=== PATIENT | female | born 1975 | race Caucasian/White ===

== ENCOUNTER 2017-08-02 18:56 | Emergency (ER) | payer BC ==
[2017-08-02 19:14] VITALS: BP 164/77; PULSE 84; TEMP 99.3
[2017-08-02 19:20] VITALS: RESP 18
--- NOTE | 2017-08-02 20:04 | XR ---
EXAMINATION: XR chest 2V DATE AND TIME: 08/02/2017 7:37 PM ORDERING PROVIDER: Chanda Kapoor CLINICAL INDICATION: Pain; right anterior rib pain with coughing for a week TECHNIQUE: PA and lateral COMPARISON: 07/03/2015 DESCRIPTION: The lungs are clear. The pleural spaces are negative. The cardiac silhouette is not enlarged. The mediastinal and pleural silhouettes are unremarkable. The skeletal structures are intact without focal findings. The soft tissues are unremarkable. IMPRESSION: NO ACUTE PROCESS.
--- NOTE | 2017-08-02 20:05 | XR ---
PROCEDURE: XR ribs RT, 4 views DATE AND TIME: 08/02/2017 7:37 PM REFERRING PHYSICIAN: Chanda Kapoor CLINICAL INDICATION: PHH, Pain right anterior rib TECHNIQUE: Department protocol. COMPARISON: None FINDINGS: There is no fracture or malalignment. The soft tissues are unremarkable. No incidental find ings. IMPRESSION: NO ACUTE PROCESS.
--- NOTE | 2017-08-02 20:11 | ED ---
General Adult HPI - General Chief complaint: Upper Respiratory Infection Stated complaint: cough Time Seen by Provider: 08/02/17 19:24 Source: patient, RN notes reviewed Mode of arrival: ambulatory Limitations: no limitations - History of Present Illness Initial comments: This is a 42-year-old female presents to the emergency department with chief complaint of cough. Patient states that she has had a nonproductive cough for the past 8 weeks. She states that she was evaluated by a doctor and was given albuterol and Singulair. She states that a couple of days ago she developed a right rib pain that increases with coughing or taking a deep breath. Patient denies any recent hospitalizations or surgeries, travel, estrogen use, history of blood clots. She denies any upper respiratory symptoms including sore throat , sinus congestion, ear pain or runny nose. She denies any fevers or chills. Patient does report a history of asthma. - Related Data Home Medications Medication Instructions Recorded Confirmed Fexofenadine HCl [Sis Allergy] 60 mg PO BID 08/02/17 08/02/17 Montelukast [Singulair] 10 mg PO HS 08/02/17 08/02/17 Allergies Allergy/AdvReac Type Severity Reaction Status Date / Time amoxicillin Allergy Rash/Hives Verified 08/02/17 19:14 sulfamethoxazole Allergy Rash/Hives Verified 08/02/17 19:14 [From Bactrim] trimethoprim [From Bactrim] Allergy Rash/Hives Verified 08/02/17 19:14 Review of Systems ROS Statement: Those systems with pertinent positive or pertinent negative responses have been documented in the HPI. ROS Other: All systems not noted in ROS Statement are negative. Past Medical History Past Medical History: No Reported History Additional Past Medical History / Comment(s): herniated disc C5-6 C6-7, n/t lt arm with pain to back along shoulder blades thru chest and valeri arms,steroid injection June,PM History of Any Multi-Drug Resistant Organisms: None Reported Past Surgical History: Tonsillectomy Additional Past Surgical History / Comment(s): UTERINE ABLATION, RIGHT AND LEFT ELBOW Past Anesthesia/Blood Transfusion Reactions: Motion Sickness Past Psychological History: No Psychological Hx Reported Smoking Status: Never smoker Past Alcohol Use History: None Reported Past Drug Use History: None Reported - Past Family History Father Family Medical History: No Reported History Mother Family Medical History: No Reported History General Exam - General Exam Comments Initial Comments: General: Awake and alert, well-developed; in no apparent distress. HEENT: Head atraumatic, normocephalic. Pupils are equal, round and reactive to light. Extraocular movements intact. Oropharynx moist without erythema or exudate. Neck: Supple. Normal ROM. Cardiovascular: Regular rate and rhythm. No murmurs, rubs or gallops. Chest symmetrical. There is tenderness on palpation of right anterior ribs just below the right breast. Respiratory: Lungs clear to auscultation bilaterally. No wheezes, rales or rhonchi. Normal respiratory effort with no use of accessory muscles. Musculoskeletal: Normal ROM, no tenderness bilateral upper and lower extremities. Ambulating normally. Skin: [place], warm and dry without rashes or lesions. Neurological: Alert and oriented x3. CN II-XII grossly intact. Speech is fluent and answers are appropriate. No focal neuro deficits. Psychiatric: Normal mood and affect. No overt signs of depression or anxiety noted. Limitations: no limitations Course Vital Signs 08/02/17 08/02/17 19:11 19:19 Temperature 99.3 F Pulse Rate 84 Respiratory 20 18 Rate Blood Pressure 164/77 O2 Sat by Pulse 99 Oximetry Medical Decision Making - Medical Decision Making This is a 42-year-old female who presents to the emergency department with chief complaint of cough and right rib pain. Patient states that she has a history of asthma and has had a cough for the past 8 weeks that is nonproductive. She has followed up with her primary care physician who prescribed her albuterol, singular and Advair. Patient is trying to get in to see an allergy and asthma specialist. Patient states that a couple of days ago she developed right rib pain that is worse with coughing and sneezing. PERC score 0. Denies any fevers or chills. On presentation, lungs are clear to auscultation bilaterally and vital signs are stable. Chest and rib x-rays were obtained and revealed no acute abnormalities. Patient is likely suffering from an intercostal muscle strain due to the excessive coughing. Patient states that she has tried multiple [id number] medications for cough suppression. I did recommend taking a teaspoon of honey. Also recommended ibuprofen 600 mg every 6 hours and ice for the muscle strain. Patient is in no acute distress and will be discharged home at this time. She is in agreement with plan and voices understanding. All questions were answered. - Radiology Data Radiology results: report reviewed, image reviewed X-ray right ribs impression: No acute process. Chest x-ray impression: No acute process. Disposition Clinical Impression: Intercostal muscle strain Disposition: HOME SELF-CARE Condition: Good Instructions: Chest Wall Pain (ED) Additional Instructions: Please rest, ice and take ibuprofen 600 mg every 6 hours for the next 2-3 days. Please follow up with primary care provider within 1-2 days. Return to emergency department if symptoms should worsen or any concerns arise. Is patient prescribed a controlled substance at d/c from ED?: No Referrals: Jeannie Billings MD [Primary Care Provider] - 1-2 days Time of Disposition: 20:22
== END 2017-08-02 20:25 | disposition home or self-care (01) ==
LOC: EC 18:56
DX: S29.011A Strain of muscle and tendon of front wall of thorax, initial encounter (principal); R05 Cough; Z88.0 Allergy status to penicillin; Z88.1 Allergy status to other antibiotic agents; Z88.2 Allergy status to sulfonamides; Z79.899 Other long term (current) drug therapy; X58.XXXA Exposure to other specified factors, initial encounter
CPT/HCPCS: 71046; 99283

== ENCOUNTER 2018-03-25 02:24 | Observation (INO) | payer BC ==
[2018-03-25] MEDS ORDERED: SODIUM CHLORIDE 0.9% 500 ML 500 ML IV STA (02:40)
[2018-03-25 02:52] LABS: Basophils # (A) 0.1 k/uL (0-0.2); Basophils % (A) 1 %; Eosinophils # (A) 0.2 k/uL (0-0.7); Eosinophils % (A) 3 %; HCT 44.7 % (34.0-46.0); Lymphocytes # (A) 3.3 k/uL (1.0-4.8); Lymphocytes % (A) 45 %; MCH 31.4 pg (25.0-35.0); MCHC 33.5 g/dL (31.0-37.0); MCV 93.9 fL (80.0-100.0); Mean Platelet Volume 8.1; Monocytes # (A) 0.3 k/uL (0-1.0); Monocytes % (A) 4 %; Neutrophils # (A) 3.3 k/uL (1.3-7.7); Neutrophils % (A) 45 %; Platelet Count 249 k/uL (150-450); RBC 4.76 m/uL (3.80-5.40); RDW 12.9 % (11.5-15.5); WBC 7.4 k/uL (3.8-10.6)
--- NOTE | 2018-03-25 02:52 | ED ---
Arrhythmia/Palpitations HPI - General Source: family, RN notes reviewed, old records reviewed Mode of arrival: ambulatory Limitations: no limitations <Debra Mejia - Last Filed: 03/25/18 03:53> <Sharmila Ware - Last Filed: 03/27/18 02:00> - General Chief Complaint: Arrhythmia/Palpitations Stated Complaint: Difficulty Breathing Time Seen by Provider: 03/25/18 02:30 - History of Present Illness Initial Comments: Patient is a 43-year-old female presents today today with chief complaint of heart palpitations and chest tightness. She reports the tightness feels a 2 out of 10. Patient states that this evening when she was falling asleep she had a sudden GI upset felt nauseated and had some diarrhea. She reports that afterwards she started up felt dizzy lightheaded and started to hyperventilate. Patient states that she is concerned with a racing heart rate. Patient states she is scheduled to have a cardiac catheterization by Dr. Whitley early next month. She states that she did feel some previous stress test. ( Debra Mejia) - Related Data Home Medications Medication Instructions Recorded Confirmed Montelukast [Singulair] 10 mg PO HS 08/02/17 03/25/18 Beclomethasone Dip 80 Mcg/Puff 1 puff INHALATION BID 03/25/18 03/25/18 [Qvar 80 mcg] Cyanocobalamin (Vitamin B-12) 1,000 mcg PO Q8HR 03/25/18 03/25/18 [Vitamin B-12] Ergocalciferol (Vitamin D2) 50,000 unit PO WE 03/25/18 03/25/18 [Vitamin D2] Previous Rx's Medication Instructions Recorded ALPRAZolam [Xanax] 0.25 mg PO TID PRN 3 Days #9 tab 03/25/18 Metoprolol Tartrate [Lopressor] 25 mg PO BID #60 tab 03/25/18 Naproxen 500 mg PO BID #30 tablet 03/25/18 Allergies Allergy/AdvReac Type Severity Reaction Status Date / Time amoxicillin Allergy Rash/Hives Verified 03/25/18 08:23 sulfamethoxazole Allergy Rash/Hives Verified 03/25/18 08:23 [From Bactrim] trimethoprim [From Bactrim] Allergy Rash/Hives Verified 03/25/18 08:23 Review of Systems ROS Other: All systems not noted in ROS Statement are negative. <Debra Mejia - Last Filed: 03/25/18 03:53> ROS Other: All systems not noted in ROS Statement are negative. <Sharmila Ware Hector - Last Filed: 03/27/18 02:00> ROS Statement: Those systems with pertinent positive or pertinent negative responses have been documented in the HPI. Past Medical History Past Medical History: Atrial Fibrillation Additional Past Medical History / Comment(s): herniated disc C5-6 C6-7, n/t lt arm with pain to back along shoulder blades thru chest and valeri arms,steroid injection June,PM History of Any Multi-Drug Resistant Organisms: None Reported Past Surgical History: Tonsillectomy Additional Past Surgical History / Comment(s): UTERINE ABLATION, RIGHT AND LEFT ELBOW Past Anesthesia/Blood Transfusion Reactions: Motion Sickness Past Psychological History: Anxiety Smoking Status: Never smoker Past Alcohol Use History: Occasional Past Drug Use History: None Reported - Past Family History Father Family Medical History: No Reported History Mother Family Medical History: No Reported History <Debra Mejia - Last Filed: 03/25/18 03:53> General Exam Limitations: no limitations General appearance: alert, in no apparent distress Head exam: Present: atraumatic, normocephalic, normal inspection Eye exam: Present: normal appearance, PERRL, EOMI. Absent: scleral icterus, conjunctival injection, periorbital swelling ENT exam: Present: normal exam, normal oropharynx, mucous membranes moist Neck exam: Present: normal inspection. Absent: tenderness, meningismus, lymphadenopathy Respiratory exam: Present: normal lung sounds bilaterally. Absent: respiratory distress, wheezes, rales, rhonchi, stridor Cardiovascular Exam: Present: regular rate, normal rhythm, normal heart sounds. Absent: systolic murmur, diastolic murmur, rubs, gallop, clicks GI/Abdominal exam: Present: soft, normal bowel sounds. Absent: distended, tenderness, guarding, rebound, rigid Extremities exam: Present: normal inspection, full ROM, normal capillary refill. Absent: tenderness, pedal edema, joint swelling, calf tenderness Back exam: Present: normal inspection Neurological exam: Present: alert, oriented X3, CN II-XII intact Psychiatric exam: Present: normal affect, normal mood <Debra Mejia - Last Filed: 03/25/18 03:53> <Sharmila Ware - Last Filed: 03/27/18 02:00> - General Exam Comments Initial Comments: This is a 43-year-old female. Alert and oriented. No distress. Patient appears somewhat anxious. (Debra Mejia) Vital Signs 03/25/18 03/25/18 03/25/18 02:25 04:58 05:00 Temperature 97.9 F 97.5 F L Pulse Rate 90 84 Pulse Rate [ 83 Pulse Oximetery ] Respiratory 18 16 16 Rate Blood Pressure 138/93 126/80 Blood Pressure 116/78 [Left Arm] O2 Sat by Pulse 100 96 95 Oximetry EKG Findings - EKG Comments: EKG Findings:: EKG performed at 259 shows sinus rhythm, prolonged QT. Abnormal EKG. Ventricular rate is 87 bpm. Is 124 ms. QRS duration is 94 ms. QT QTc is 400/481 ms. <Debra Mejia - Last Filed: 03/25/18 03:53> Medical Decision Making - Lab Data Result diagrams: 03/25/18 02:37 03/25/18 02:37 - Radiology Data Radiology results: report reviewed <Debra Mejia - Last Filed: 03/25/18 03:53> - Lab Data Result diagrams: 03/25/18 02:37 03/25/18 02:37 <Sharmila Ware - Last Filed: 03/27/18 02:00> - Medical Decision Making Patient is a 43-year-old female presents return today was 2. of palpitations, chest tightness. She reports her symptoms started when she was about to fall asleep. She states she went to the bathroom had a bowel movement stood up and started to have the symptoms, they started approximately half hour prior to arrival. Patient is scheduled for a cardiac cath at the beginning of April. At this time patient's EKG was reviewed to be normal. Initial troponin is negative. She is scheduled to see Dr. Jennifer chun. The patient's symptoms of chest tightness, dizziness, dyspnea will admit the Patient for repeat troponins and consult to cardiology. (Debra Mejia) I personally saw and examined the patient. I reviewed and agree with the mid- level provider findings including all diagnostic interpretations and treatment plans as written unless otherwise stated. Patient care was discussed with the admitting team Dr Pickard who agrees with plan for admission (Sharmila Ware) - Lab Data Lab Results 03/25/18 03/25/18 03/25/18 Range/Units 02:37 02:37 02:37 WBC 7.4 (3.8-10.6) k/uL RBC 4.76 (3.80-5.40) m/uL Hgb 15.0 (11.4-16.0) gm/dL Hct 44.7 (34.0-46.0) % MCV 93.9 (80.0-100.0) fL MCH 31.4 (25.0-35.0) pg MCHC 33.5 (31.0-37.0) g/dL RDW 12.9 (11.5-15.5) % Plt Count 249 (150-450) k/uL Neutrophils % 45 % Lymphocytes % 45 % Monocytes % 4 % Eosinophils % 3 % Basophils % 1 % Neutrophils # 3.3 (1.3-7.7) k/uL Lymphocytes # 3.3 (1.0-4.8) k/uL Monocytes # 0.3 (0-1.0) k/uL Eosinophils # 0.2 (0-0.7) k/uL Basophils # 0.1 (0-0.2) k/uL PT (9.0-12.0) sec INR (<1.2) APTT (22.0-30.0) sec Sodium 139 (137-145) mmol/L Potassium 4.1 (3.5-5.1) mmol/L Chloride 103 (98-107) mmol/L Carbon Dioxide 28 (22-30) mmol/L Anion Gap 8 mmol/L BUN 16 (7-17) mg/dL Creatinine 0.87 (0.52-1.04) mg/dL Est GFR (CKD-EPI)AfAm >90 (>60 ml/min/1.73 sqM) Est GFR (CKD-EPI)NonAf 82 (>60 ml/min/1.73 sqM) Glucose 110 H (74-99) mg/dL Calcium 9.3 (8.4-10.2) mg/dL Magnesium 2.1 (1.6-2.3) mg/dL Total Bilirubin 0.4 (0.2-1.3) mg/dL AST 23 (14-36) U/L ALT 41 (9-52) U/L Alkaline Phosphatase 63 (38-126) U/L Total Creatine Kinase 42 (30-135) U/L CK-MB (CK-2) 0.3 (0.0-2.4) ng/mL CK-MB (CK-2) Rel Index 0.7 Troponin I <0.012 (0.000-0.034) ng/mL Total Protein 7.4 (6.3-8.2) g/dL Albumin 4.3 (3.5-5.0) g/dL TSH 4.430 (0.465-4.680) mIU/L 03/25/18 Range/Units 02:37 WBC (3.8-10.6) k/uL RBC (3.80-5.40) m/uL Hgb (11.4-16.0) gm/dL Hct (34.0-46.0) % MCV (80.0-100.0) fL MCH (25.0-35.0) pg MCHC (31.0-37.0) g/dL RDW (11.5-15.5) % Plt Count (150-450) k/uL Neutrophils % % Lymphocytes % % Monocytes % % Eosinophils % % Basophils % % Neutrophils # (1.3-7.7) k/uL Lymphocytes # (1.0-4.8) k/uL Monocytes # (0-1.0) k/uL Eosinophils # (0-0.7) k/uL Basophils # (0-0.2) k/uL PT 10.2 (9.0-12.0) sec INR 0.9 (<1.2) APTT 23.3 (22.0-30.0) sec Sodium (137-145) mmol/L Potassium (3.5-5.1) mmol/L Chloride (98-107) mmol/L Carbon Dioxide (22-30) mmol/L Anion Gap mmol/L BUN (7-17) mg/dL Creatinine (0.52-1.04) mg/dL Est GFR (CKD-EPI)AfAm (>60 ml/min/1.73 sqM) Est GFR (CKD-EPI)NonAf (>60 ml/min/1.73 sqM) Glucose (74-99) mg/dL Calcium (8.4-10.2) mg/dL Magnesium (1.6-2.3) mg/dL Total Bilirubin (0.2-1.3) mg/dL AST (14-36) U/L ALT (9-52) U/L Alkaline Phosphatase (38-126) U/L Total Creatine Kinase (30-135) U/L CK-MB (CK-2) (0.0-2.4) ng/mL CK-MB (CK-2) Rel Index Troponin I (0.000-0.034) ng/mL Total Protein (6.3-8.2) g/dL Albumin (3.5-5.0) g/dL TSH (0.465-4.680) mIU/L - Radiology Data Normal chest x-ray. No changes. (Debra Mejia) Disposition Is patient prescribed a controlled substance at d/c from ED?: No Time of Disposition: 03:57 <Debra Mejia - Last Filed: 03/25/18 03:53> <Sharmila Ware - Last Filed: 03/27/18 02:00> Clinical Impression: Unstable angina Disposition: HOME SELF-CARE Condition: Good
[2018-03-25 02:59] LABS: Anion Gap 8 mmol/L; Blood Urea Nitrogen 16 mg/dL (7-17); Calcium 9.3 mg/dL (8.4-10.2); Carbon Dioxide 28 mmol/L (22-30); Chloride 103 mmol/L (98-107); Glucose 110 mg/dL (74-99); Potassium 4.1 mmol/L (3.5-5.1); Sodium 139 mmol/L (137-145)
[2018-03-25 03:00] LABS: ALT 41 U/L (9-52); AST 23 U/L (14-36); Albumin 4.3 g/dL (3.5-5.0); Alkaline Phosphatase 63 U/L (38-126); Magnesium 2.1 mg/dL (1.6-2.3); Total Bilirubin 0.4 mg/dL (0.2-1.3); Total Protein 7.4 g/dL (6.3-8.2)
--- NOTE | 2018-03-25 03:03 | XR ---
EXAMINATION TYPE: XR chest 2V DATE OF EXAM: 03/25/2018 COMPARISON: 08/02/2017 HISTORY: Difficulty breathing TECHNIQUE: Frontal and lateral views of the chest are obtained. FINDINGS: Heart and mediastinum are normal. Lungs are clear. Diaphragm is normal. Bony thorax is int act. IMPRESSION: Normal chest. No change.
[2018-03-25 03:11] LABS: Creatine Kinase 42 U/L (30-135); INR 0.9 (<1.2); Partial Thromboplastin Time 23.3 sec (22.0-30.0); Prothrombin Time 10.2 sec (9.0-12.0)
[2018-03-25] MEDS ORDERED: LORazepam 2 MG/ML INJ IV STA (03:11)
[2018-03-25 03:24] LABS: Creatine Kinase MB 0.3 ng/mL (0.0-2.4); Troponin I <0.012 ng/mL (0.000-0.034)
[2018-03-25] MEDS ORDERED: NALOXONE 0.4 MG/ML 1 ML VIAL IV PRN (03:59)
[2018-03-25] MEDS ORDERED: ONDANSETRON 4 MG/2 ML VIAL IVP PRN (03:59)
[2018-03-25] MEDS ORDERED: ACETAMINOPHEN TAB 325 MG TAB PO PRN (03:59)
[2018-03-25] MEDS ORDERED: IBUPROFEN 400 MG TAB PO PRN (03:59)
[2018-03-25] MEDS ORDERED: MORPHINE SULFATE 4 MG/ML SYRINGE IV PRN (03:59)
[2018-03-25] MEDS ORDERED: KETOROLAC 30 MG/ML 1 ML VIAL IVP PRN (03:59)
[2018-03-25] MEDS ORDERED: SODIUM CHLORIDE 0.9% 1,000 ML IV SCH (04:00)
[2018-03-25 08:18] VITALS: RESP 18; TEMP 98.1
[2018-03-25 10:52] VITALS: BP 108/73; PULSE 82
[2018-03-25 11:44] LABS: Creatine Kinase 38 U/L (30-135)
[2018-03-25 11:58] LABS: Creatine Kinase MB 0.3 ng/mL (0.0-2.4); Troponin I <0.012 ng/mL (0.000-0.034)
[2018-03-25] MEDS ORDERED: METOPROLOL TARTRATE 25 MG TAB PO SCH (12:15)
--- NOTE | 2018-03-25 12:23 | P.CRDCN ---
History of Present Illness History of present illness: This is a pleasant 43-year-old female was recently established in the office with Dr. Rodriguez secondary to intermittent symptoms of chest discomfort. She underwent an exercise stress test which revealed poor exercise tolerance and multiple episodes of nonsustained ventricular tachycardia. She therefore underwent a Lexiscan stress test which showed some element of possible reversibility. She is scheduled for an elective catheterization on April 22. She states for the previous few days she has been suffering with multiple bouts of diarrhea. She woke up last night in the middle of the night with symptoms of palpitations. She states her heart was racing rapidly and felt very irregular. She had the urge to go to the bathroom so she got up went to the restroom and again had diarrhea. Upon standing from the commode she became acutely dizzy and felt she was going to pass out and became nauseated. She denies actual syncope or LOC. She also complains of intermittent symptoms of tightness in her chest. The symptoms are similar to what she felt prior to undergoing stress testing. They're not related to exertion, cough or movement of her torso. She denies associated shortness of breath, diaphoresis or vomiting. Her symptoms resolved prior to coming to the hospital. Telemetry tracings have been unremarkable for any acute arrhythmia. EKG reveals sinus mechanism with no acute ST or T wave abnormalities noted. Chest x-ray is negative for an acute cardiopulmonary process. Laboratory data reviewed, WBC 7.4, hemoglobin 15, platelets 249, sodium 139, potassium 4.1, creatinine 0.7, magnesium 2.1, cardiac enzymes negative 2. She takes no daily medications. Echocardiogram obtained in the office March 18 reviewed and reveals preserved left ventricular systolic function. At the time of my exam: CONSTITUTIONAL: Denies fever. Denies chills. EYES: Denies blurred vision. Denies vision changes. Denies eye pain. EARS, NOSE, MOUTH & THROAT: Denies headache. Denies sore throat. Denies ear pain. CARDIOVASCULAR: Denies chest pain. Denies shortness of breath. Denies orthopnea. Denies PND. Denies palpitations. RESPIRATORY: Denies cough. GASTROINTESTINAL: Denies abdominal pain. Denies diarrhea. Denies constipation. Denies nausea. Denies vomiting. MUSCULOSKELETAL: Denies myalgias. INTEGUMENTARY: Denies pruitis. Denies rash. NEUROLOGIC: Denies numbness. Denies tingling. Denies weakness. PSYCHIATRIC: Denies anxiety. Denies depression. ENDOCRINE: Denies fatigue. Denies weight change. Denies polydipsia. Denies polyurina. GENITOURINARY: Denies burning, hematuria or urgency with micturation. HEMATOLOGIC: Denies history of anemia. Denies bleeding. Blood pressure 125/82 heart rate 92 afebrile maintaining oxygen saturation on room air GENERAL: This is a 43-year-old female in no apparent distress at the time of my examination. HEENT: Head is atraumatic, normocephalic. Pupils are equal, round. Sclerae anicteric. Conjunctivae are clear. Mucous membranes of the mouth are moist. Neck is supple. There is no jugular venous distention. No carotid bruit is heard. LUNGS: Clear to auscultation no wheezes, rales or rhonchi. No chest wall tenderness is noted on palpation or with deep breathing. HEART: Regular rate and rhythm without murmurs, rubs or gallops. S1 and S2 heard. ABDOMEN: Soft, nontender. Bowel sounds are heard. No organomegaly noted. EXTREMITIES: No evidence of peripheral edema and no calf tenderness noted. VASCULAR: Radial and dorsalis pedis pulses palpated, no evidence of clubbing. NEUROLOGIC: Patient is awake, alert and oriented x3. ASSESSMENT Palpitations Diarrhea PLAN Symptoms most likely related to vasovagal reaction. Add on small dose of beta ruby in the form of metoprolol 25 mg twice a day. Echocardiogram and stress tests have been reviewed from the office. Obtain orthostatic vital signs. Agree with IV hydration. Increase activity and an ablation in the halls and assess for any ongoing symptoms of dizziness or palpitations. She is feeling better after IV hydration with no recurrent dizziness she is stable from a cardiac perspective. Continue with elective cardiac catheterization April 22 as planned. Thank you kindly for this consultation. Nurse Practitioner note has been reviewed, I agree with a documented findings and plan of care. Patient was seen and examined. Past Medical History Past Medical History: Atrial Fibrillation Additional Past Medical History / Comment(s): herniated disc C5-6 C6-7, n/t lt arm with pain to back along shoulder blades thru chest and valeri arms,steroid injection June 2015 History of Any Multi-Drug Resistant Organisms: None Reported Past Surgical History: Tonsillectomy Additional Past Surgical History / Comment(s): UTERINE ABLATION, RIGHT AND LEFT ELBOW Past Anesthesia/Blood Transfusion Reactions: Motion Sickness Past Psychological History: Anxiety Smoking Status: Never smoker Past Alcohol Use History: Occasional Past Drug Use History: None Reported - Past Family History Father Family Medical History: No Reported History Mother Family Medical History: No Reported History Medications and Allergies Home Medications Medication Instructions Recorded Confirmed Type Montelukast [Singulair] 10 mg PO HS 08/02/17 03/25/18 History ALPRAZolam [Xanax] 0.25 mg PO TID PRN 3 Days #9 tab 03/25/18 Rx Beclomethasone Dip 80 Mcg/Puff 1 puff INHALATION BID 03/25/18 03/25/18 History [Qvar 80 mcg] Cyanocobalamin (Vitamin B-12) 1,000 mcg PO Q8HR 03/25/18 03/25/18 History [Vitamin B-12] Ergocalciferol (Vitamin D2) 50,000 unit PO WE 03/25/18 03/25/18 History [Vitamin D2] Metoprolol Tartrate [Lopressor] 25 mg PO BID #60 tab 03/25/18 Rx Naproxen 500 mg PO BID #30 tablet 03/25/18 Rx Allergies Allergy/AdvReac Type Severity Reaction Status Date / Time amoxicillin Allergy Rash/Hives Verified 03/25/18 08:23 sulfamethoxazole Allergy Rash/Hives Verified 03/25/18 08:23 [From Bactrim] trimethoprim [From Bactrim] Allergy Rash/Hives Verified 03/25/18 08:23 Physical Exam Vitals: Vital Signs Temp Pulse Pulse Pulse Pulse Pulse Resp 03/25/18 10:49 92 99 82 03/25/18 07:30 98.1 F 79 18 03/25/18 05:40 16 03/25/18 05:00 97.5 F L 83 16 03/25/18 04:58 84 16 03/25/18 02:25 97.9 F 90 18 BP BP BP BP BP BP Pulse Ox 03/25/18 10:49 125/82 120/77 108/73 96 03/25/18 07:30 102/69 97 03/25/18 05:40 03/25/18 05:00 116/78 95 03/25/18 04:58 126/80 96 03/25/18 02:25 138/93 100 Intake and Output 03/24/18 03/25/18 03/25/18 22:59 06:59 14:59 Other: Voiding Method Toilet Toilet # Voids 1 Weight 104.326 kg Results 03/25/18 02:37 03/25/18 02:37 Cardiac Enzymes 03/25/18 03/25/18 03/25/18 Range/Units 02:37 02:37 11:02 AST 23 (14-36) U/L CK-MB (CK-2) 0.3 0.3 (0.0-2.4) ng/mL Troponin I <0.012 <0.012 (0.000-0.034) ng/mL Coagulation 03/25/18 Range/Units 02:37 PT 10.2 (9.0-12.0) sec APTT 23.3 (22.0-30.0) sec CBC 03/25/18 Range/Units 02:37 WBC 7.4 (3.8-10.6) k/uL RBC 4.76 (3.80-5.40) m/uL Hgb 15.0 (11.4-16.0) gm/dL Hct 44.7 (34.0-46.0) % Plt Count 249 (150-450) k/uL Comprehensive Metabolic Panel 03/25/18 Range/Units 02:37 Sodium 139 (137-145) mmol/L Potassium 4.1 (3.5-5.1) mmol/L Chloride 103 (98-107) mmol/L Carbon Dioxide 28 (22-30) mmol/L BUN 16 (7-17) mg/dL Creatinine 0.87 (0.52-1.04) mg/dL Glucose 110 H (74-99) mg/dL Calcium 9.3 (8.4-10.2) mg/dL AST 23 (14-36) U/L ALT 41 (9-52) U/L Alkaline Phosphatase 63 (38-126) U/L Total Protein 7.4 (6.3-8.2) g/dL Albumin 4.3 (3.5-5.0) g/dL Current Medications Generic Name Dose Route Start Last Admin Trade Name Freq PRN Reason Stop Dose Admin Acetaminophen 650 mg 03/25/18 03:59 Tylenol Tab PO Q6HR PRN Mild Pain or Fever > 100.5 Sodium Chloride 1,000 mls @ 100 mls/hr 03/25/18 04:00 03/25/18 05:56 Saline 0.9% IV 100 mls/hr .Q10H ELLY Administration Ibuprofen 400 mg 03/25/18 03:59 Motrin PO Q6HR PRN Mild Pain or Fever > 100.5 Ketorolac Tromethamine 30 mg 03/25/18 03:59 Toradol IVP 03/30/18 04:00 Q6HR PRN Moderate Pain Metoprolol Tartrate 25 mg 03/25/18 12:15 Lopressor PO BID ELLY Morphine Sulfate 4 mg 03/25/18 03:59 Morphine Sulfate (Inj) IV Q4HR PRN Severe Pain Naloxone HCl 0.2 mg 03/25/18 03:59 Narcan IV Q2M PRN Opioid Reversal Ondansetron HCl 4 mg 03/25/18 03:59 Zofran IVP Q8HR PRN Nausea And Vomiting Intake and Output 03/24/18 03/25/18 03/25/18 22:59 06:59 14:59 Other: Voiding Method Toilet Toilet # Voids 1 Weight 104.326 kg 03/25/18 02:37 03/25/18 02:37
--- NOTE | 2018-03-25 15:03 | P.HPIM ---
History of Present Illness H&P Date: 03/25/18 HISTORY AND PHYSICAL AND DISCHARGE SUMMARY: This is a 43-year-old female patient of Dr. Billings with past medical history of mild intermittent asthma, chronic back pain, generalized anxiety disorder. Patient was in her normal state of health until she developed heart palpitations and chest tightness as well as some nausea and diarrhea. She was also experiencing dizziness and lightheadedness and started to hyperventilate. She does have a heart catheterization scheduled for Dr. Rodriguez on April 22. Patient presented to [facility] emergency center. Vital signs are stable but blood pressure initially was 138/93. EKG was a sinus rhythm CBC was normal, electrolytes within normal limits, creatinine 0.87, TSH 4.430, troponin 0.012. Chest x-ray was normal. Patient was placed on the observation unit and cardiology consult requested. Patient has been evaluated by cardiology with plan for her to follow up with Dr. Rodriguez as previously scheduled for heart catheterization on April 22. Patient does have reproducible chest pain and will be started on naproxen. Cardiology has started her on Lopressor. Patient also has had increased anxiety for which Xanax will be provided for 3 day supply. Discharge Medication List Montelukast [Singulair] 10 mg PO HS 08/02/17 [History] ALPRAZolam [Xanax] 0.25 mg PO TID PRN 3 Days #9 tab 03/25/18 [Rx] Beclomethasone Dip 80 Mcg/Puff [Qvar 80 mcg] 1 puff INHALATION BID 03/25/18 [ History] Cyanocobalamin (Vitamin B-12) [Vitamin B-12] 1,000 mcg PO Q8HR 03/25/18 [History ] Ergocalciferol (Vitamin D2) [Vitamin D2] 50,000 unit PO WE 03/25/18 [History] Metoprolol Tartrate [Lopressor] 25 mg PO BID #60 tab 03/25/18 [Rx] Naproxen 500 mg PO BID #30 tablet 03/25/18 [Rx] Review of Systems All systems: negative Constitutional: Denies chills, Denies fever Eyes: denies blurred vision, denies pain Ears, nose, mouth and throat: Reports vertigo, Denies dysphagia, Denies headache , Denies sore throat Cardiovascular: Reports chest pain, Reports lightheadedness, Reports palpitations, Reports rapid heart beat, Denies edema, Denies leg edema, Denies paroxysmal nocturnal dyspnea, Denies shortness of breath, Denies syncope Respiratory: Denies cough, Denies cough with sputum, Denies dyspnea, Denies excessive sputum, Denies hemoptysis, Denies home oxygen, Denies wheezing Gastrointestinal: Denies abdominal pain, Denies diarrhea, Denies loss of appetite, Denies nausea, Denies vomiting Genitourinary: Denies dysuria, Denies hematuria, Denies urgency, Denies urinary frequency Musculoskeletal: Denies frequent falls, Denies gait dysfunction, Denies muscle weakness, Denies myalgias Integumentary: Denies pruritus, Denies rash, Denies wounds Neurological: Denies aphasia, Denies balance difficulties, Denies change in mentation, Denies change in speech, Denies gait dysfunction, Denies numbness, Denies seizures, Denies weakness Psychiatric: Denies anxiety, Denies depression Endocrine: Denies fatigue, Denies weight change Past Medical History Past Medical History: Atrial Fibrillation Additional Past Medical History / Comment(s): herniated disc C5-6 C6-7, n/t lt arm with pain to back along shoulder blades thru chest and valeri arms,steroid injection June 2015 History of Any Multi-Drug Resistant Organisms: None Reported Past Surgical History: Tonsillectomy Additional Past Surgical History / Comment(s): UTERINE ABLATION, RIGHT AND LEFT ELBOW Past Anesthesia/Blood Transfusion Reactions: Motion Sickness Past Psychological History: Anxiety Smoking Status: Never smoker Past Alcohol Use History: Occasional Past Drug Use History: None Reported - Past Family History Father Family Medical History: No Reported History Mother Family Medical History: No Reported History Medications and Allergies Home Medications Medication Instructions Recorded Confirmed Type Montelukast [Singulair] 10 mg PO HS 08/02/17 03/25/18 History ALPRAZolam [Xanax] 0.25 mg PO TID PRN 3 Days #9 tab 03/25/18 Rx Beclomethasone Dip 80 Mcg/Puff 1 puff INHALATION BID 03/25/18 03/25/18 History [Qvar 80 mcg] Cyanocobalamin (Vitamin B-12) 1,000 mcg PO Q8HR 03/25/18 03/25/18 History [Vitamin B-12] Ergocalciferol (Vitamin D2) 50,000 unit PO WE 03/25/18 03/25/18 History [Vitamin D2] Metoprolol Tartrate [Lopressor] 25 mg PO BID #60 tab 03/25/18 Rx Naproxen 500 mg PO BID #30 tablet 03/25/18 Rx Allergies Allergy/AdvReac Type Severity Reaction Status Date / Time amoxicillin Allergy Rash/Hives Verified 03/25/18 08:23 sulfamethoxazole Allergy Rash/Hives Verified 03/25/18 08:23 [From Bactrim] trimethoprim [From Bactrim] Allergy Rash/Hives Verified 03/25/18 08:23 Physical Exam Vitals: Vital Signs Temp Pulse Pulse Resp BP BP BP 03/25/18 07:30 98.1 F 79 18 102/69 03/25/18 05:40 16 03/25/18 05:00 97.5 F L 83 16 116/78 03/25/18 04:58 84 16 126/80 03/25/18 02:25 97.9 F 90 18 138/93 Pulse Ox 03/25/18 07:30 97 03/25/18 05:40 03/25/18 05:00 95 03/25/18 04:58 96 03/25/18 02:25 100 Intake and Output 03/24/18 03/25/18 03/25/18 22:59 06:59 14:59 Other: Voiding Method Toilet # Voids 1 Weight 104.326 kg Gen: This is a 43-year-old obese female. She is resting in bed and appears to be comfortable and in no acute distress. HEENT: Head is atraumatic, normocephalic. Pupils equal, round. Sclerae is anicteric. NECK: Supple. No JVD. No lymphadenopathy. No thyromegaly. LUNGS: Clear to auscultation. No wheezes or rhonchi. No intercostal retractions. Positive chest tenderness, positive pain with movement. HEART: Regular rate and rhythm. No murmur. ABDOMEN: Soft. Bowel sounds are present. No masses. No tenderness. EXTREMITIES: No pedal edema. No calf tenderness. NEUROLOGICAL: Patient is awake, alert and oriented x3. Cranial nerves 2 through 12 are grossly intact. Results CBC & Chem 7: 03/25/18 02:37 01/04/19 02:37 Labs: Abnormal Lab Results - Last 24 Hours (Table) 03/25/18 Range/Units 02:37 Glucose 110 H (74-99) mg/dL Thrombosis Risk Factor Assmnt - DVT/VTE Prophylaxis DVT/VTE Prophylaxis: Mechanical Prophylaxis ordered - Choose All That Apply Any of the Below Risk Factors Present?: Yes Each Factor Represents 1 point: Acute TN, Obesity (BMI >25) Other Risk Factors: No Other congenital or acquired thrombophilia - If yes, enter type in comment: No Thrombosis Risk Factor Assessment Total Risk Factor Score: 2 Thrombosis Risk Factor Assessment Level: Low Risk Assessment and Plan Plan: 1. Palpitations. 2. Mild intermittent asthma, stable. 3. Musculoskeletal chest wall pain. 4. Generalized anxiety disorder. Patient placed on the observation unit. Discharge plan: Home Impression and plan of care have been directed as dictated by the signing physician. Dina Espitia nurse practitioner acting as scribe for signing physician.
== END 2018-03-25 13:00 | disposition home or self-care (01) ==
LOC: EC 02:24 → 1SOBS 03:51
PROVIDERS: ADMIT Internal Medicine; ATTEND Internal Medicine
DX: R00.2 Palpitations (principal); R07.89 Other chest pain; E66.9 Obesity, unspecified; Z68.36 Body mass index [BMI] 36.0-36.9, adult; F41.1 Generalized anxiety disorder; M50.223 Other cervical disc displacement at C6-C7 level; I47.2 Ventricular tachycardia; R19.7 Diarrhea, unspecified; J45.20 Mild intermittent asthma, uncomplicated; I48.91 Unspecified atrial fibrillation; Z79.899 Other long term (current) drug therapy; Z88.0 Allergy status to penicillin; Z88.2 Allergy status to sulfonamides
CPT/HCPCS: 96374; 99285; 36415; 93005; 80053; 82550; 82553; 83735; 84443; 84484; 85025; 85610; 85730; 71046; G0378; J2060

== ENCOUNTER → 2018-04-07 | Outpatient (CLI) | payer BC ==
[2018-04-07 09:22] LABS: HCT 44.3 % (34.0-46.0); HGB 14.1 gm/dL (11.4-16.0); MCH 30.6 pg (25.0-35.0); MCHC 31.8 g/dL (31.0-37.0); MCV 96.5 fL (80.0-100.0); Mean Platelet Volume 8.1; Platelet Count 248 k/uL (150-450); RBC 4.59 m/uL (3.80-5.40); RDW 12.8 % (11.5-15.5); WBC 7.7 k/uL (3.8-10.6)
== END | disposition home or self-care (01) ==
LOC: LABPAT 08:18
PROVIDERS: ATTEND Internal Medicine Interventional Cardiology
DX: Z01.812 Encounter for preprocedural laboratory examination (principal); R06.02 Shortness of breath; R07.9 Chest pain, unspecified
CPT/HCPCS: 36415; 82565; 84520; 85027

== ENCOUNTER 2018-04-22 09:21 | Day surgery (SDC) | payer BC ==
[2018-04-20 11:40] VITALS: BMI 34.4
[~2018-04-22 09:21] MED LIST: ALPRAZolam 0.25 MG TAB PO PRN; ALPRAZolam 0.5 MG TAB PO PRN; ASPIRIN 325 MG TAB PO STA; ATORVASTATIN 80 MG TAB PO STA; NITROGLYCERIN SL TABS 0.4 MG TAB SUBLINGUAL PRN; SODIUM CHLORIDE 0.9% 1,000 ML in EMPTY BAG 1 BAG IV ONE
[2018-04-22] MEDS ORDERED: VERAPAMIL 2.5 MG/ML 2 ML AMP ONE (11:24)
[2018-04-22] MEDS ORDERED: LIDOCAINE 1% INJ 10MG/ML (20 ML MDV) ONE (11:24)
[2018-04-22] MEDS ORDERED: HEPARIN SODIUM 1,000 UN/ML (10ML VL) ONE (11:25)
[2018-04-22] MEDS ORDERED: SODIUM CHLORIDE 0.9% 1,000 ML IV ONE (11:28)
[2018-04-22] MEDS ORDERED: MIDAZOLAM 2 MG/2 ML VIAL IV ONE (11:30)
[2018-04-22] MEDS ORDERED: fentaNYL (PF) 50 MCG/ML 2 ML AMP ONE (11:38)
[2018-04-22] MEDS ORDERED: LIDOCAINE 2% INJ 20 MG/ML SQ ONE ×2 (11:39)
[2018-04-22] MEDS ORDERED: fentaNYL (PF) 50 MCG/ML 2 ML AMP IV ONE (11:40)
[2018-04-22] MEDS: VERAPAMIL SYRINGE (5 MG/10 ML) INTRAARTER ONE ×2 (11:41→11:55)
[2018-04-22] MEDS ORDERED: HYDROmorphone 2 MG/ML 1 ML SYRINGE IV ONE (11:43)
[2018-04-22] MEDS ORDERED: HEPARIN SODIUM 1,000 UN/ML (10ML VL) IV ONE (11:45)
[2018-04-22] MEDS ORDERED: IOPAMIDOL-370 125ML BTL INJ ONE (11:53)
[2018-04-22] MEDS ORDERED: RX INFO: IV CONTRAST WAS GIVEN 1 EACH MISC MISCELLANE PRN (11:59)
[2018-04-22] MEDS ORDERED: SODIUM CHLORIDE 0.9% 1,000 ML IV SCH (12:00)
--- NOTE | 2018-04-22 12:42 | CC ---
CARDIAC CATHETERIZATION REPORT DATE OF SERVICE: 04/22/2018 PERFORMING PHYSICIAN: Mykel Rodriguez MD, Cosmetics Demonstrator. PROCEDURE PERFORMED: Selective right and left coronary angiogram. INDICATION: This is a pleasant 43-year-old female patient with significant family history of coronary artery disease who was experiencing chest discomfort and underwent myocardial perfusion imaging stress test and that revealed anterior ischemia. Because of that, heart catheterization was advised. APPROACH: Right radial artery. COMPLICATION: None. LEVEL OF SEDATION: Moderate with sedation length of 18 minutes. PROCEDURE DESCRIPTION: After obtaining an informed consent, the patient was brought to the cardiac general production laborer. The right radial artery was cannulated using micropuncture technique and a micropuncture wire passed easily, then I placed a 5-Nepalese in the right radial artery. After that, I did selective right and left coronary angiogram using JR4 and JL3.5 catheters. Left heart catheterization was performed using the JR4 catheter which flipped into the LV then I did pull did pullback across aortic valve. The procedure was completed without any complication. SELECTIVE CORONARY ANGIOGRAM: 1. The right coronary artery is a large caliber vessel and is a dominant vessel. It is angiographically normal. It distally bifurcates into PDA and PLV branches both are normal. 2. The left main is angiographically normal, it bifurcates into the circumflex and left anterior descending artery. 3. Left circumflex is a large caliber vessel. It is a nondominant vessel. The proximal circumflex is normal. The mid circumflex is normal and gives rise into a large OM branch which appeared to be normal and bifurcates distally into 2 small branches both are angiographically normal. The circumflex continued after that as a moderate caliber vessel in the AV groove. 4. The LAD, the proximal LAD appeared to be normal. The mid LAD is normal and gives rise into large diagonal branch which appeared to be normal. The mid LAD and distal LAD are normal as well. HEMODYNAMICS: The left ventricular end-diastolic pressure was 12 mmHg and no gradient was identified across the aortic valve. CONCLUSION: 1. Normal coronary angiogram. 2. Normal left ventricular end-diastolic pressure. POSTPROCEDURE MANAGEMENT: 1. Medical treatment. 2. Follow up with the patient. MMODL / IJN: [id number] /
--- NOTE | 2018-04-22 13:36 | LTR ---
April 22, 2018 Re: Raina Veronica Dear Dr. Billings: Ms. Raina Martin underwent today a heart catheterization and that revealed normal coronaries. I want to thank you for allowing me to participate in her care and please do not hesitate to call if you have any question or concern. Sincerely, MD EMMANUELLE Jovel / PRAMOD: [id number] /
[2018-04-22 16:53] VITALS: BP 102/72; PULSE 72; RESP 20
== END 2018-04-22 16:53 | disposition home or self-care (01) ==
LOC: CATHCVL 09:21
PROVIDERS: ATTEND Internal Medicine Interventional Cardiology
DX: R94.39 Abnormal result of other cardiovascular function study (principal); I20.0 Unstable angina; E78.5 Hyperlipidemia, unspecified; Z79.51 Long term (current) use of inhaled steroids; Z79.899 Other long term (current) drug therapy; Z82.49 Family history of ischemic heart disease and other diseases of the circulatory system; Z88.0 Allergy status to penicillin; Z88.2 Allergy status to sulfonamides
CPT/HCPCS: 93458; 81025; C1894; J2001; J2250; J1170; J3010; J1644; Q9967

== ENCOUNTER 2019-03-23 11:40 | Day surgery (SDC) | payer BC ==
[2019-03-17 18:27] VITALS: BMI 34.4
[~2019-03-23 11:40] MED LIST changes: +ALBUTEROL NEB (CONC) 2.5 MG/0.5 ML INHALATION ONE; -ALPRAZolam 0.25 MG TAB PO PRN; -ALPRAZolam 0.5 MG TAB PO PRN; -ASPIRIN 325 MG TAB PO STA; -ATORVASTATIN 80 MG TAB PO STA; +ATROPINE SULFATE 0.4 MG/ML 1 ML VIAL IM ONE; +LACTATED RINGERS 1,000 ML IV SCH; +LIDOCAINE 1% 20 ML VIAL (10MG/ML) FOR IV START INTRADERMA PRN; +LIDOCAINE 2% (PF) 20 MG/ML 5 ML VIAL INHALATION ONE; +LIDOCAINE VISCOUS 300 MG/15 ML CUP MUCOUS MEM ONE; -NITROGLYCERIN SL TABS 0.4 MG TAB SUBLINGUAL PRN; +SODIUM CHLORIDE 0.9% 1,000 ML IV SCH; -SODIUM CHLORIDE 0.9% 1,000 ML in EMPTY BAG 1 BAG IV ONE
[2019-03-23 12:49] VITALS: TEMP 98.7
[2019-03-23] MEDS ORDERED: LIDOCAINE 1% INJ 10MG/ML (20 ML MDV) ONE (13:05)
[2019-03-23] MEDS ORDERED: PROPOFOL 10 MG/ML 20 ML VIAL IV ONE (13:05)
[2019-03-23] MEDS ORDERED: fentaNYL (PF) 50 MCG/ML 2 ML AMP ONE (13:05)
[2019-03-23] MEDS ORDERED: MIDAZOLAM 2 MG/2 ML VIAL ONE (13:05)
[2019-03-23] MEDS ORDERED: LIDOCAINE 2% INJ 20 MG/ML INTRATRACH ONE (13:21)
[2019-03-23 13:29] VITALS: RESP 16
[2019-03-23 13:56] VITALS: BP 120/83; PULSE 96
[2019-03-23 16:37] LABS: Appearance,BF Clear; Color,BF Colorless; Nucleated Cells, Body Fluid 1 /uL; RBC, Body Fluid 16 /uL
--- NOTE | 2019-03-24 08:26 | PCN ---
PROCEDURE NOTE PROCEDURE: Bronchoscopy, airway examination, therapeutic lavage, BAL. PREOPERATIVE DIAGNOSIS: Severe asthma. POSTOPERATIVE DIAGNOSIS: Severe asthma along with retained secretions. OPERATORS: Dr. Mccain, Dr. Mcleod and Krysta Stanton. PROCEDURE: The patient's procedure took place in room #1 endoscopy center. There was informed consent and universal timeout. The nurse fur stretcher provided general anesthesia and unconscious sedation. After the patient was adequately sedated and being fully monitored, the bronchoscope was inserted through the left nostril. It passed through the nasopharynx into the oropharynx. The hypopharynx was identified and topicalized. The structures in the hypopharynx appeared normal including anterior commissure, true cords, false cords, arytenoids, piriform sinuses, right and left valleculae and epiglottis. After topicalization, bronchoscope was pushed through the glottic opening into the trachea. Trachea appeared relatively normal. There was minimal secretions. Tracheal aubrey was sharp. The right mainstem and left mainstem were topicalized. The right upper lobe and its 3 segments, right middle lobe and its 2 segments, right lower lobe and its 5 segments, left upper lobe proper and its 2 segments, the lingula and its 2 segments and the left lower lobe and its 4 segments all had similar findings of very mild bronchitic airways. There was mild erythema hyperemia. Minimal secretions were noted. There was no dominant mass. The patient did not bleed. The bronchoscope was then wedged into the right middle lobe. We did our BAL. Roughly 30 mL of fluid was recovered. The fluid will be sent for analysis. Additional secretions were suctioned and the bronchoscope was withdrawn. The patient will be recovered. There was no immediate complication. The patient tolerated the procedure well. MMODL / IJN: [id number] /
== END 2019-03-23 14:18 | disposition home or self-care (01) ==
LOC: ORWHC2ENDO 11:40
PROVIDERS: ATTEND Internal Medicine Critical Care Medicine
DX: J45.909 Unspecified asthma, uncomplicated (principal); I10 Essential (primary) hypertension; I48.91 Unspecified atrial fibrillation; Z88.0 Allergy status to penicillin; Z88.2 Allergy status to sulfonamides; Z88.1 Allergy status to other antibiotic agents; Z79.51 Long term (current) use of inhaled steroids; Z79.899 Other long term (current) drug therapy; Z90.89 Acquired absence of other organs; Z98.1 Arthrodesis status
CPT/HCPCS: 94640; 81025; 88108; 88305; 89050; 87252; 87070; 87205; 87116; 87102; 87206; 31624; J2001 ×3; J2250; J0461; J3010; J2704; 87496; 87498; 87502; 87529; 87634; 87798

== ENCOUNTER → 2019-10-03 | Outpatient (CLI) | payer BC | END | disposition home or self-care (01) | LOC: LABWHC1 10:06 | PROVIDERS: ATTEND Internal Medicine Critical Care Medicine | DX: J45.909 Unspecified asthma, uncomplicated (principal); J30.2 Other seasonal allergic rhinitis | CPT/HCPCS: 36415; 82785; 85008 ==

== ENCOUNTER → 2020-03-07 | Outpatient (CLI) | payer BC ==
--- NOTE | 2020-03-07 14:04 | US ---
EXAMINATION TYPE: US thyroid st tissue head/neck DATE OF EXAM: 03/07/2020 COMPARISON: NONE CLINICAL HISTORY: R22.0 Thyroidomegaly. enlarged gland felt by physician GLAND SIZE: Right Lobe: 5.6 x 1.7 x 1.5 cm Overall Parenchyma: homogenous Left Lobe: 4.5 x 1.5 x 1.5 cm Overall Parenchyma: homogeneous Isthmus Thickness: 0.4 cm NODULES RIGHT: # of nodules measured on right: 0 LEFT: # of nodules measured on left: 0 ISTHMUS: # of nodules measured in the isthmus: 0 Bilateral neck scanned, no evidence of lymphadenopathy. Homogeneous normal-size thyroid without discrete solid or cystic nodule. IMPRESSION: As above. Unremarkable study.
== END | disposition home or self-care (01) ==
LOC: RADUSWWP 13:38
PROVIDERS: ATTEND Family Medicine
DX: R22.0 Localized swelling, mass and lump, head (principal); E01.0 Iodine-deficiency related diffuse (endemic) goiter; Z88.0 Allergy status to penicillin
CPT/HCPCS: 76536

== ENCOUNTER → 2020-04-09 | Outpatient (CLI) | payer BC ==
--- NOTE | 2020-04-10 11:36 | MM ---
Reason for exam: screening (asymptomatic). Last mammogram was performed 6 years and 2 months ago. History: Family history of breast cancer in maternal grandmother. Physical Findings: A clinical breast exam by your physician is recommended on an annual basis and results should be correlated with mammographic findings. MG 3D Screening Mammo W/Cad Bilateral CC and MLO view(s) were taken. Prior study comparison: February 01, 2014, bilateral MG screening mammo w CAD. The breast tissue is heterogeneously dense. This may lower the sensitivity of mammography. There are benign appearing round calcifications in the left breast. There is no discrete abnormality. ASSESSMENT: Negative, BI-RAD 1 RECOMMENDATION: Routine screening mammogram of both breasts in 1 year.
== END | disposition home or self-care (01) ==
LOC: RADMAMWWP 07:23
PROVIDERS: ATTEND Family Medicine
DX: Z12.31 Encounter for screening mammogram for malignant neoplasm of breast (principal); Z80.3 Family history of malignant neoplasm of breast
CPT/HCPCS: 77063; 77067

== ENCOUNTER → 2021-05-07 | Outpatient (CLI) | payer BC ==
--- NOTE | 2021-05-07 16:10 | P.HPBAR ---
Bariatric H&P - History & Physicial H&P Date: 05/07/21 History & Physicial: Visit/CC: Patient initial contact: Initial weight: Initial weight in pounds: Height: Initial BMI: Last weight: Current weight: Current weight in pounds: Current BMI: [place] body weight (based on NIH guidelines): Excess body weight loss: The patient is a 46 year-old F who presents for Bariatric Assessment. DATE OF SERVICE: 05/07/2021 REASON FOR CONSULTATION: Initial bariatric evaluation. HISTORY OF PRESENT ILLNESS: Raina Martin is a 46-year-old female who comes with lifelong morbid obesity. She presents for the first time in consultation. She comes in for weight loss surgery. She is looking into the sleeve gastrectomy. She denies moderate gastroesophageal reflux disease. She is getting a mammogram. Her highest weight is 250 pounds. She has tried keto diet and had weight loss. She had tried Phenteramine. Most weight loss is keto diet and 38 pounds weight loss. Her son has obesity including her mother and grandmother. She has knee and feet pain. She denies active sleep apnea. She denies stomach cancer. She denies DVTs. At height of 5 feet 7 inches, her ideal body weight is 158 pounds. Her highest weight is 287 pounds, body mass index 43.8. She comes in 287 pounds. Her body mass index is 43.8. She is 124 pounds overweight. PAST MEDICAL HISTORY: 1. Morbid obesity due to excess calories 2. Body mass index of 43.8 3. Anxiety 4. Motion Sickness 5. Atrial fibrillation 6. Asthma 7. Hypertensive heart disease 8. Disc herniation 9. 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 Uterine ablation 2. Right elbow surgery 3. Left elbow surgery 4. Heart catheterization 5. Cervical fusion 6. Tonsillectomy HOME MEDICATIONS: Home Medications Medication Instructions Recorded Confirmed Montelukast [Singulair] 10 mg PO HS PRN 08/02/17 07/02/21 Albuterol Inhaler (Mhu) [Ventolin 1 - 2 puff INHALATION RT-Q6H PRN 03/17/19 Hfa Inhaler (Mhu)] Cholecalciferol [Vitamin D3 (25 25 mcg PO DAILY 06/12/21 07/02/21 Mcg = 1000 Iu)] Vitamin C (Unknown Dose) 1 tab PO DAILY 06/12/21 07/02/21 Zinc (Unknown Dose) 1 tab PO DAILY 06/12/21 07/02/21 Calcium Carbonate [Calcium] 1 tab PO BID 07/02/21 07/02/21 ALLERGIES: Allergies Allergy/AdvReac Type Severity Reaction Status Date / Time amoxicillin Allergy Rash/Hives Verified 06/16/21 07:33 sulfamethoxazole Allergy Rash/Hives Verified 06/16/21 07:33 [From Bactrim] trimethoprim [From Bactrim] Allergy Rash/Hives Verified 06/16/21 07:33 SOCIAL HISTORY: Denies tobacco use. FAMILY HISTORY: No family history of ulcerative colitis disease or Crohn's disease. Family history of morbid obesity. No lupus in the family. No reports of stomach or esophageal cancer. She reports her grandmother had obesity. REVIEW OF ORGAN SYSTEMS: CONSTITUTIONAL: HEENT: Denies any active troubles with vision or hearing. ENDOCRINE: Denies diabetes. Denies hypothyroidism. CARDIOVASCULAR: Denies past reports of palpitations or heart attacks or chest pain. RESPIRATORY: Has asthma. No shortness of breath. GASTROINTESTINAL: Denies any bright red blood per rectum. No diarrhea. No constipation. GENITOURINARY: Denies bladder urgency. No recent blood in urine MUSCULOSKELETAL: Has lower back pain and joint pain. Denies history of bilateral lower extremity edema. NEURO: Denies migraines. No seizure disorders. PSYCH: Denies depression. No suicidal ideation. RHEUMATOLOGIC: No lupus. No rheumatoid arthritis. HEMATOLOGIC: Denies any abnormal bleeding or bruising. Denies past history of DVTs. SKIN: No rash. No skin cancer. PHYSICAL EXAM: VITAL SIGNS: Height 5 foot 7 inches, weight 248 pounds. BMI 39.0 Vital Signs Temp 98.3 F 05/07/21 16:36 Pulse 97 05/07/21 16:36 Resp 16 05/07/21 16:36 BP 139/89 05/07/21 16:36 Pulse Ox GENERAL: Well-developed in no acute distress. HEENT: No scleral icterus. Extraocular movements grossly intact. Hears conversational speech. No nasal drainage. NECK: Supple without lymphadenopathy. CHEST: Nonlabored respirations with equal bilateral excursions. CARDIOVASCULAR: Regular rate and regular rhythm. Distal 2+ pulses. ABDOMEN: Obese, soft, nontender, nondistended. MUSCULOSKELETAL: No clubbing, cyanosis. NEURO: No focal or lateralizing signs. Cranial nerves 2 through 12 grossly within normal limits. PSYCH: Appropriate affect. Alert and oriented to person, place and time. SKIN: Good skin turgor. Well perfused. ASSESSMENT: 1. Morbid obesity due to excess calories 2. Body mass index of 43.8 3. Anxiety 4. Motion Sickness 5. Atrial fibrillation 6. Asthma 7. Hypertensive heart disease 8. Disc herniation 9. 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 Surgical options including a band, gastric bypass, sleeve gastrectomy were described in detail. Alternatives such as gastric balloon including duodenal switch were described. 2. The [place] [facility]ariat[facility] collaborative data and outcomes calculator were described with surgical options deferred. 3. Recommend a bariatric metabolic panel to evaluate for micro- including macronutrient deficiencies. 4. For history of daytime somnolence, recommend evaluation and treatment for sleep apnea. 5. Dietary surveillance and counseling was reviewed. Increased protein intake over 65 grams daily advised. 6. Will need cardiac risk assessment. 7. Recommend medical risk assessment. 8. Psych assessment per insurance guidelines. 9. Recommend upper endoscopy. 10. Recommend 12-lead EKG. 11. Recommend urine nicotine testing pre-op 12. Recommend urine drug screen Thank you for this consultation. Past Medical History Past Medical History: Atrial Fibrillation, Asthma, Hypertension Additional Past Medical History / Comment(s): Hx herniated disc C5-6 C6-7, hx surgery. Off Lopressor since 06/2018. Cough in winter months, 2 rounds of steroids with no improvement 01/2019-02/2019. History of Any Multi-Drug Resistant Organisms: None Reported Past Surgical History: Heart Catheterization, Tonsillectomy, Uterine Ablation Additional Past Surgical History / Comment(s): UTERINE ABLATION, RIGHT AND LEFT ELBOW. Heart Cath 03/2018. Cervical fusion 2016. Past Anesthesia/Blood Transfusion Reactions: Motion Sickness Past Psychological History: Anxiety Additional Psychological History / Comment(s): No current tx Past Alcohol Use History: Occasional Past Drug Use History: None Reported - Past Family History Father Family Medical History: No Reported History Mother Family Medical History: No Reported History Results - Labs 05/07/21 16:19 05/07/21 16:19 Bariatric Checklist Checklist: Plan: Checklist: EGD: 1. Hiatal hernia: 2. H. Pylori: HgbA1c: Vitamin D: Smoking: Never smoker Primary care physician referral: Psychiatry clearance: Cardiology clearance: Sleep study: Diet journal: VTE risk score: VTE risk level: Rehab needs at discharge:
[2021-05-07 16:41] VITALS: BP 139/89; PULSE 97; RESP 16; TEMP 98.3; BMI 38.9
[2021-05-07 17:11] LABS: Partial Thromboplastin Time 24.8 sec (22.0-30.0); Prothrombin Time 10.7 sec (9.0-12.0)
[2021-05-07 23:14] LABS: HCT 44.9 % (37.2-46.3); HGB 14.8 g/dL (12.0-15.0); MCH 31.1 pg (27.0-32.0); MCV 94.3 fL (80.0-97.0); Mean Platelet Volume 11.9 fL (9.5-12.2); NRBC Per 100 WBC 0 /100 WBCS (0.0-0.0); Platelet Count 262 X 10*3/uL (140-440); RBC 4.76 X 10*6/uL (4.10-5.20); RDW 12.1 % (11.5-14.5); WBC 7.18 X 10*3/uL (4.50-10.00)
[2021-05-08 00:28] LABS: % Iron Saturation 23.29 (12.00-45.00); ALT 21 U/L (8-44); AST 20 U/L (13-35); African American GFR (CKD) 87.3 (60.0-200.0); Albumin 4.7 g/dL (3.8-4.9); Albumin/Globulin Ratio 1.89 (1.60-3.17); Alkaline Phosphatase 76 U/L (41-126); BUN/Creat Ratio 10.32 Ratio (12.00-20.00); Blood Urea Nitrogen 9.4 mg/dL (9.0-27.0); Calcium 9.6 mg/dL (8.7-10.3); Carbon Dioxide 24.2 mmol/L (20.0-27.5); Chloride 102 mmol/L (96-109); Ferritin 84.3 ng/mL (10.0-291.0); Globulin 2.5 g/dL (1.6-3.3); Glucose 101 mg/dL (70-110); Iron 89 ug/dL (50-170); Magnesium 2.3 mg/dL (1.5-2.4); Non-African American GFR(CKD) 75.3 (60.0-200.0); Phosphorus 3.2 mg/dL (2.4-5.1); Potassium 4.7 mmol/L (3.5-5.5); Sodium 140 mmol/L (135-145); Total Iron Binding Capacity 382 ug/dL (228-460); Total Protein 7.2 g/dL (6.2-8.2)
[2021-05-08 05:18] LABS: Chol/HDL Ratio 3.44 Ratio; LDL Cholesterol,Calculated 124.8 mg/dL (0.0-131.0)
[2021-05-08 05:19] LABS: Prealbumin 28.3 mg/dL (18.0-42.0)
[2021-05-08 13:05] LABS: Zinc, Serum 78 ug/dL (60-130)
[2021-05-09 09:12] LABS: Vitamin A 48 ug/dL (38-106)
[2021-05-10 12:59] LABS: Selenium 163 mcg/L (63-160)
[2021-05-12 08:50] LABS: Anabasine Urine <2.0 ng/mL (<2.0)
[2021-05-19 14:27] LABS: Vit B1(Thiamine) 68 ug/L (38-122)
== END ==
LOC: BARWHC3 15:22
PROVIDERS: ATTEND Surgery Plastic and Reconstructive Surgery
DX: E66.01 Morbid (severe) obesity due to excess calories (principal); Z68.41 Body mass index [BMI] 40.0-44.9, adult; F41.9 Anxiety disorder, unspecified; T75.3XXA Motion sickness, initial encounter; I48.91 Unspecified atrial fibrillation; J45.909 Unspecified asthma, uncomplicated; I11.9 Hypertensive heart disease without heart failure; M17.0 Bilateral primary osteoarthritis of knee; M19.071 Primary osteoarthritis, right ankle and foot; M19.072 Primary osteoarthritis, left ankle and foot; M51.9 Unspecified thoracic, thoracolumbar and lumbosacral intervertebral disc disorder; Z88.1 Allergy status to other antibiotic agents; Z88.2 Allergy status to sulfonamides
CPT/HCPCS: 84255; 84134; 84425; 80061; 80053; 82607; 82728; 82525; 82746; 83540; 83550; 83735; 84100; 84443; 84590; 84630; 85027; 85610; 85730; 82306; 80323; 83970; 83036; 80307; 99211; 36415; G0482

== ENCOUNTER 2021-06-16 07:19 | Day surgery (SDC) | payer BC ==
[2021-06-12 10:39] VITALS: BMI 38.3
[~2021-06-16 07:19] MED LIST changes: -ALBUTEROL NEB (CONC) 2.5 MG/0.5 ML INHALATION ONE; -ATROPINE SULFATE 0.4 MG/ML 1 ML VIAL IM ONE; -LIDOCAINE 1% 20 ML VIAL (10MG/ML) FOR IV START INTRADERMA PRN; -LIDOCAINE 2% (PF) 20 MG/ML 5 ML VIAL INHALATION ONE; -LIDOCAINE VISCOUS 300 MG/15 ML CUP MUCOUS MEM ONE; -SODIUM CHLORIDE 0.9% 1,000 ML IV SCH
[2021-06-16 07:43] VITALS: TEMP 97.8
[2021-06-16] MEDS ORDERED: PROPOFOL 10 MG/ML 20 ML VIAL IV ONE (08:12)
[2021-06-16] MEDS ORDERED: LIDOCAINE 1% INJ 10MG/ML (20 ML MDV) ONE (08:12)
--- NOTE | 2021-06-16 08:16 | P.GSHP ---
History of Present Illness H&P Date: 06/16/21 CHIEF COMPLAINT: GERD HISTORY OF PRESENT ILLNESS: The patient is a 46-year-old female who presents reports gastroesophageal reflux disease. Upper endoscopy was offered for further evaluation and management. PAST MEDICAL HISTORY: Please see list. PAST SURGICAL HISTORY: Please see list. MEDICATIONS: Please see list. ALLERGIES: Please see list. SOCIAL HISTORY: No illicit drug use FAMILY HISTORY: No reports of Crohn disease or ulcerative colitis. REVIEW OF ORGAN SYSTEMS: CONSTITUTIONAL: No reports of fevers or chills. GI: Denies any blood in stools or constipation. PHYSICAL EXAM: VITAL SIGNS: Stable GENERAL: Well-developed and pleasant in no acute distress. HEENT: No scleral icterus. Extraocular movements grossly intact. Moist buccal mucosa. NECK: Supple without lymphadenopathy. CHEST: Unlabored respirations. Equal bilateral excursions. CARDIOVASCULAR: Regular rate and rhythm. Distal 2+ pulses. ABDOMEN: Soft, nondistended. MUSCULOSKELETAL: No clubbing, cyanosis, or edema. ASSESSMENT: 1. Gastroesophageal reflux disease PLAN: 1. Recommend proceeding with an upper endoscopy Past Medical History Past Medical History: Asthma Additional Past Medical History / Comment(s): Hx arrythmia. Seasonal asthma. History of Any Multi-Drug Resistant Organisms: None Reported Past Surgical History: Heart Catheterization, Orthopedic Surgery, Tonsillectomy, Uterine Ablation Additional Past Surgical History / Comment(s): Rt & Lt Elbow. Heart Cath 03/2018. Cervical fusion 2015. Bronchoscopy. Colonoscopy Past Anesthesia/Blood Transfusion Reactions: Motion Sickness Smoking Status: Never smoker - Past Family History Father Family Medical History: No Reported History Mother Family Medical History: No Reported History Medications and Allergies Home Medications Medication Instructions Recorded Confirmed Type Montelukast [Singulair] 10 mg PO HS PRN 08/02/17 06/12/21 History Albuterol Inhaler (Mhu) [Ventolin 1 - 2 puff INHALATION RT-Q6H PRN 03/17/19 06/12/21 History Hfa Inhaler] Cholecalciferol [Vitamin D3 (25 25 mcg PO DAILY 06/12/21 06/12/21 History Mcg = 1000 Iu)] Phentermine HCl 37.5 mg PO DAILY 06/12/21 06/12/21 History Vitamin C (Unknown Dose) 1 tab PO DAILY 06/12/21 History Zinc (Unknown Dose) 1 tab PO DAILY 06/12/21 History Allergies Allergy/AdvReac Type Severity Reaction Status Date / Time amoxicillin Allergy Rash/Hives Verified 06/16/21 07:33 sulfamethoxazole Allergy Rash/Hives Verified 06/16/21 07:33 [From Bactrim] trimethoprim [From Bactrim] Allergy Rash/Hives Verified 06/16/21 07:33 Surgical - Exam Vital Signs Temp Pulse Resp BP Pulse Ox 97.8 F 90 16 145/80 97 06/16/21 07:38 06/16/21 07:38 06/16/21 07:38 06/16/21 07:38 06/16/21 07:38
--- NOTE | 2021-06-16 08:25 | P.PCN ---
Date of Procedure: 06/16/21 Description of Procedure: PREOPERATIVE DIAGNOSIS: Gastroesophageal reflux disease. Morbid obesity. POSTOPERATIVE DIAGNOSIS: Gastroesophageal reflux disease. Morbid obesity. Gastritis. Duodenitis OPERATION: Esophagogastroduodenoscopy with biopsies along antrum and antrum SURGEON: Rosalia Pompa MD ANESTHESIA: MAC. INDICATIONS: The patient is a 46-year-old female who presents with reflux disease. Benefits and risks of the procedure were described. Informed consent was obtained. DESCRIPTION: The patient was brought into the endoscopy suite and laid in the left lateral decubitus position. An Olympus gastroscope was passed along the posterior oropharynx down to the distal esophagus where the squamocolumnar junction was encountered at 40 cm from the incisors. The stomach was entered and no bile reflux was found. Additional findings are listed below. Biopsies with cold forceps were obtained of the antrum. The first through third portion of the duodenum was examined. Retroflexion of the scope confirmed Hill grade 2 lower esophageal valve. The squamocolumnar junction demonstrated LA grade B erosive esophagitis. The stomach was desufflated. The patient tolerated the procedure well. FINDINGS: Squamocolumnar junction 40 cm from the incisors. Diaphragmatic hiatus at 40 cm. Hill grade 2 lower esophageal valve. LA grade B erosive esophagitis. Duodenitis, mild, with duodenal polyp Chronic gastritis, mild RECOMMENDATIONS: Upper endoscopy as needed. Plan - Discharge Summary Discharge Rx Participant: No New Discharge Prescriptions: Continue Montelukast [Singulair] 10 mg PO HS PRN PRN Reason: allergies in spring Albuterol Inhaler (Mhu) [Ventolin Hfa Inhaler (Mhu)] 1 - 2 puff INHALATION RT-Q6H PRN PRN Reason: asthma Phentermine HCl 37.5 mg PO DAILY Zinc (Unknown Dose) 1 tab PO DAILY Vitamin C (Unknown Dose) 1 tab PO DAILY Cholecalciferol [Vitamin D3 (25 Mcg = 1000 Iu)] 25 mcg PO DAILY Discharge Medication List Montelukast [Singulair] 10 mg PO HS PRN 08/02/17 [History] Albuterol Inhaler (Mhu) [Ventolin Hfa Inhaler (Mhu)] 1 - 2 puff INHALATION RT- Q6H PRN 03/17/19 [History] Cholecalciferol [Vitamin D3 (25 Mcg = 1000 Iu)] 25 mcg PO DAILY 06/12/21 [History] Phentermine HCl 37.5 mg PO DAILY 06/12/21 [History] Vitamin C (Unknown Dose) 1 tab PO DAILY 06/12/21 [History] Zinc (Unknown Dose) 1 tab PO DAILY 06/12/21 [History] [facility] [facility] [place] [facility] [place] Patient Instructions/Handouts: Gastritis (DC), Diet for Stomach Ulcers and Gastritis (GEN) Discharge Disposition: HOME SELF-CARE
[2021-06-16 09:02] VITALS: BP 120/84; PULSE 82; RESP 20
== END 2021-06-16 09:02 | disposition home or self-care (01) ==
LOC: ORWHC2ENDO 07:19
PROVIDERS: ATTEND Surgery Plastic and Reconstructive Surgery
DX: K21.00 Gastro-esophageal reflux disease with esophagitis, without bleeding (principal); K29.50 Unspecified chronic gastritis without bleeding; K29.80 Duodenitis without bleeding; K31.7 Polyp of stomach and duodenum; E66.01 Morbid (severe) obesity due to excess calories; J45.998 Other asthma; I49.9 Cardiac arrhythmia, unspecified; F41.9 Anxiety disorder, unspecified; Z68.39 Body mass index [BMI] 39.0-39.9, adult; Z79.899 Other long term (current) drug therapy; Z88.0 Allergy status to penicillin; Z88.2 Allergy status to sulfonamides; Z98.890 Other specified postprocedural states; Z90.89 Acquired absence of other organs; Z98.1 Arthrodesis status
CPT/HCPCS: 81025; 88305; 43239; J2001; J2704

== ENCOUNTER → 2021-06-30 | Outpatient (CLI) | payer BC ==
[2021-06-30 11:46] VITALS: BMI 39.1
== END | disposition home or self-care (01) ==
LOC: BARWHC3 08:34
PROVIDERS: ATTEND Surgery Plastic and Reconstructive Surgery
DX: E66.01 Morbid (severe) obesity due to excess calories (principal); Z71.3 Dietary counseling and surveillance; Z68.39 Body mass index [BMI] 39.0-39.9, adult; Z88.1 Allergy status to other antibiotic agents; Z88.2 Allergy status to sulfonamides
CPT/HCPCS: 97804

== ENCOUNTER → 2021-08-05 | Outpatient (CLI) | payer BC ==
[2021-08-05 14:24] LABS: Basophils # (A) 0.05 X 10*3/uL (0.00-0.10); Basophils % (A) 0.6 %; Eosinophils # (A) 0.07 X 10*3/uL (0.04-0.35); Eosinophils % (A) 0.8 %; HCT 45.5 % (37.2-46.3); HGB 14.6 g/dL (12.0-15.0); Immature Grans, Automated 0.6 %; Lymphocytes # (A) 1.62 X 10*3/uL (0.90-5.00); Lymphocytes % (A) 19.7 %; MCH 30.9 pg (27.0-32.0); MCHC 32.1 g/dL (32.0-37.0); MCV 96.4 fL (80.0-97.0); Mean Platelet Volume 11.3 fL (9.5-12.2); Monocytes # (A) 0.57 X 10*3/uL (0.20-1.00); Monocytes % (A) 6.9 %; NRBC Per 100 WBC 0 /100 WBCS (0.0-0.0); Neutrophils # (A) 5.88 X 10*3/uL (1.80-7.70); Neutrophils % (A) 71.4 %; Platelet Count 262 X 10*3/uL (140-440); RBC 4.72 X 10*6/uL (4.10-5.20); RDW 12.5 % (11.5-14.5); WBC 8.24 X 10*3/uL (4.50-10.00)
[2021-08-05 14:46] LABS: African American GFR (CKD) 108.1 (60.0-200.0); Albumin 4.7 g/dL (3.8-4.9); Albumin/Globulin Ratio 2.09 (1.60-3.17); Anion Gap 11.4 mmol/L (10.00-18.00); BUN/Creat Ratio 23.39 Ratio (12.00-20.00); Blood Urea Nitrogen 17.8 mg/dL (9.0-27.0); Calcium 9.9 mg/dL (8.7-10.3); Carbon Dioxide 26.8 mmol/L (20.0-27.5); Globulin 2.3 g/dL (1.6-3.3); Non-African American GFR(CKD) 93.3 (60.0-200.0); Potassium 4.7 mmol/L (3.5-5.5); Total Bilirubin 0.4 mg/dL (0.30-1.20)
== END | disposition home or self-care (01) ==
LOC: LABPAT 08:43
PROVIDERS: ATTEND Surgery
DX: Z01.812 Encounter for preprocedural laboratory examination (principal)
CPT/HCPCS: 80053; 85025

== ENCOUNTER → 2021-10-29 | Outpatient (CLI) | payer BC ==
[2021-10-29 11:32] VITALS: BP 116/75; PULSE 70; TEMP 98.2; BMI 32.2
--- NOTE | 2021-10-29 12:42 | P.BASOAP ---
Subjective Progress Note Date: 10/29/21 Patient reports constipation and hemorrhoids. High fiber diet described to address symptoms. Otherwise, no dysphagia. Moderate weight loss with increased protein intake between 80 to 100 g daily. Increase fluid intake described. Recommend bariatric labs. Follow-up in 3 months. Stool chart reviewed for type 3-4 stool types Objective - Vital Signs Vital signs: Vital Signs Temp 98.2 F 10/29/21 11:28 Pulse 70 10/29/21 11:28 Resp BP 116/75 10/29/21 11:28 Pulse Ox FiO2 Intake & Output 10/28/21 10/29/21 10/29/21 18:59 06:59 18:59 Weight 93.44 kg Assessment/Plan Plan: Date: 10/29/21 Initial Weight: 112.945 kg Initial BMI: 38.9 Current Weight: 93.44 kg Current BMI: 32.2 Type of Surgery: Total Volume in Band: Previous Volume: Volume Removed: Volume Added: Band Size:
[2021-10-29 12:57] LABS: INR 1.1 (<1.2); Partial Thromboplastin Time 23.8 sec (22.0-30.0); Prothrombin Time 11.5 sec (9.0-12.0)
[2021-10-29 17:47] LABS: HCT 45.6 % (37.2-46.3); HGB 14.5 g/dL (12.0-15.0); MCH 30.7 pg (27.0-32.0); MCHC 31.8 g/dL (32.0-37.0); MCV 96.6 fL (80.0-97.0); Mean Platelet Volume 12.5 fL (9.5-12.2); NRBC Per 100 WBC 0 /100 WBCS (0.0-0.0); Platelet Count 226 X 10*3/uL (140-440); RBC 4.72 X 10*6/uL (4.10-5.20); RDW 12.1 % (11.5-14.5); WBC 6.59 X 10*3/uL (4.50-10.00)
[2021-10-29 19:25] LABS: Chol/HDL Ratio 3.71 Ratio; LDL Cholesterol,Calculated 87.4 mg/dL (0.0-131.0); Prealbumin 20.2 mg/dL (18.0-42.0)
[2021-10-29 20:02] LABS: % Iron Saturation 14.11 (12.00-45.00); ALT 10 U/L (8-44); AST 16 U/L (13-35); African American GFR (CKD) 104.3 (60.0-200.0); Albumin 4.5 g/dL (3.8-4.9); Albumin/Globulin Ratio 1.75 (1.60-3.17); Alkaline Phosphatase 62 U/L (41-126); BUN/Creat Ratio 22.96 Ratio (12.00-20.00); Calcium 9.9 mg/dL (8.7-10.3); Carbon Dioxide 25.6 mmol/L (20.0-27.5); Chloride 102 mmol/L (96-109); Ferritin 77.7 ng/mL (10.0-291.0); Globulin 2.6 g/dL (1.6-3.3); Glucose 90 mg/dL (70-110); Iron 41 ug/dL (50-170); Magnesium 2.4 mg/dL (1.5-2.4); Phosphorus 3.6 mg/dL (2.4-5.1); Potassium 4.4 mmol/L (3.5-5.5); Sodium 139 mmol/L (135-145); Total Iron Binding Capacity 290 ug/dL (228-460); Total Protein 7.1 g/dL (6.2-8.2)
[2021-10-30 12:13] LABS: Zinc, Serum 74 ug/dL (60-130)
== END | disposition home or self-care (01) ==
LOC: BARWHC3 10:49
PROVIDERS: ATTEND Surgery Plastic and Reconstructive Surgery
DX: E66.01 Morbid (severe) obesity due to excess calories (principal); E89.1 Postprocedural hypoinsulinemia; D50.8 Other iron deficiency anemias; D50.9 Iron deficiency anemia, unspecified; K91.2 Postsurgical malabsorption, not elsewhere classified; E44.0 Moderate protein-calorie malnutrition; E44.1 Mild protein-calorie malnutrition; E45 Retarded development following protein-calorie malnutrition; E46 Unspecified protein-calorie malnutrition; E55.9 Vitamin D deficiency, unspecified; K74.1 Hepatic sclerosis; N19 Unspecified kidney failure; T56.894A Toxic effect of other metals, undetermined, initial encounter; K50.90 Crohn's disease, unspecified, without complications
CPT/HCPCS: 80053; 80061; 82306; 82525; 82607; 82728; 82746; 83036; 83540; 83550; 83735; 83970; 84100; 84134; 84255; 84425; 84443; 84590; 84630; 85027; 85610; 85730; 97803; 99211

== ENCOUNTER → 2022-02-04 | Outpatient (CLI) | payer BC ==
--- NOTE | 2022-02-04 15:48 | P.BASOAP ---
Subjective Progress Note Date: 02/04/22 She feels good. No GERD. No more omeprazole. No belly pain. Protein 85 grams to 100 grams daily. She bariatastic and eating similat foods. Assessment/Plan Plan: Date: Initial Weight: 112.945 kg Initial BMI: Current Weight: Current BMI: Type of Surgery: Total Volume in Band: Previous Volume: Volume Removed: Volume Added: Band Size:
[2022-02-04 15:54] VITALS: BP 135/80; PULSE 72; TEMP 98; BMI 29.6
[2022-02-04 17:27] LABS: Prothrombin Time 10.9 sec (9.0-12.0)
[2022-02-04 23:04] LABS: HGB 13.6 g/dL (12.0-15.0); MCH 30.4 pg (27.0-32.0); MCHC 31.6 g/dL (32.0-37.0); Mean Platelet Volume 11.8 fL (9.5-12.2); NRBC Per 100 WBC 0 /100 WBCS (0.0-0.0); Platelet Count 251 X 10*3/uL (140-440); RBC 4.48 X 10*6/uL (4.10-5.20); RDW 12.5 % (11.5-14.5); WBC 6.54 X 10*3/uL (4.50-10.00)
[2022-02-04 23:51] LABS: % Iron Saturation 11.65 (12.00-45.00); ALT 12 U/L (8-44); AST 13 U/L (13-35); Albumin 4.7 g/dL (3.8-4.9); Albumin/Globulin Ratio 2.24 (1.60-3.17); Alkaline Phosphatase 67 U/L (41-126); Blood Urea Nitrogen 16.2 mg/dL (9.0-27.0); Calcium 9.8 mg/dL (8.7-10.3); Carbon Dioxide 27.3 mmol/L (20.0-27.5); Chloride 105 mmol/L (96-109); Globulin 2.1 g/dL (1.6-3.3); Glucose 88 mg/dL (70-110); Iron 36 ug/dL (50-170); Magnesium 2.2 mg/dL (1.5-2.4); Non-African American GFR(CKD) 93.2 (60.0-200.0); Phosphorus 3.5 mg/dL (2.4-5.1); Potassium 4.5 mmol/L (3.5-5.5); Sodium 142 mmol/L (135-145); Total Iron Binding Capacity 311 ug/dL (228-460); Total Protein 6.7 g/dL (6.2-8.2)
[2022-02-05 00:06] LABS: Chol/HDL Ratio 3.47 Ratio; LDL Cholesterol,Calculated 98.6 mg/dL (0.0-131.0); Prealbumin 23.4 mg/dL (18.0-42.0)
[2022-02-05 13:23] LABS: Zinc, Serum 79 ug/dL (60-130)
[2022-02-06 06:14] LABS: Vitamin A 45 ug/dL (38-106)
== END | disposition home or self-care (01) ==
LOC: BARWHC3 15:05
PROVIDERS: ATTEND Surgery Plastic and Reconstructive Surgery
DX: E66.01 Morbid (severe) obesity due to excess calories (principal); Z71.3 Dietary counseling and surveillance
CPT/HCPCS: 36415; 80053; 80061; 82306; 82525; 82607; 82728; 82746; 83036; 83540; 83550; 83735; 83970; 84100; 84134; 84255; 84425; 84443; 84590; 84630; 85027; 85610; 85730; 97803; 99211

== ENCOUNTER → 2022-07-09 | Outpatient (CLI) | payer BC ==
[2022-07-09 16:45] LABS: Partial Thromboplastin Time 23.7 sec (22.0-30.0); Prothrombin Time 10.7 sec (9.0-12.0)
[2022-07-10 03:02] LABS: HCT 43.8 % (37.2-46.3); HGB 14.1 g/dL (12.0-15.0); MCH 31.4 pg (27.0-32.0); MCHC 32.2 g/dL (32.0-37.0); MCV 97.6 fL (80.0-97.0); Mean Platelet Volume 12.3 fL (9.5-12.2); NRBC Per 100 WBC 0 /100 WBCS (0.0-0.0); Platelet Count 249 X 10*3/uL (140-440); RBC 4.49 X 10*6/uL (4.10-5.20); RDW 12.8 % (11.5-14.5); WBC 6.95 X 10*3/uL (4.50-10.00)
[2022-07-10 03:41] LABS: % Iron Saturation 15.24 (12.00-45.00); ALT 12 U/L (8-44); AST 12 U/L (13-35); African American GFR (CKD) 80.6 (60.0-200.0); Albumin 4.4 g/dL (3.8-4.9); Alkaline Phosphatase 57 U/L (41-126); BUN/Creat Ratio 17.62 Ratio (12.00-20.00); Calcium 9.8 mg/dL (8.7-10.3); Carbon Dioxide 26.1 mmol/L (20.0-27.5); Chloride 104 mmol/L (96-109); Glucose 131 mg/dL (70-110); Iron 47 ug/dL (50-170); Magnesium 2.2 mg/dL (1.5-2.4); Non-African American GFR(CKD) 69.5 (60.0-200.0); Phosphorus 3.4 mg/dL (2.4-5.1); Potassium 4.3 mmol/L (3.5-5.5); Sodium 142 mmol/L (135-145); Total Iron Binding Capacity 305 ug/dL (228-460); Total Protein 6.4 g/dL (6.2-8.2)
[2022-07-10 03:42] LABS: Chol/HDL Ratio 2.97 Ratio; LDL Cholesterol,Calculated 86.3 mg/dL (0.0-131.0); VLDL Calculation 17.08 mg/dL (5.00-40.00)
[2022-07-10 13:26] LABS: Zinc, Serum 56 ug/dL (60-130)
== END | disposition home or self-care (01) ==
LOC: LABWHC1 15:45
PROVIDERS: ATTEND Surgery Plastic and Reconstructive Surgery
DX: E89.1 Postprocedural hypoinsulinemia (principal); E66.01 Morbid (severe) obesity due to excess calories; D50.8 Other iron deficiency anemias; K91.2 Postsurgical malabsorption, not elsewhere classified; E44.0 Moderate protein-calorie malnutrition; E44.1 Mild protein-calorie malnutrition; E45 Retarded development following protein-calorie malnutrition; E55.9 Vitamin D deficiency, unspecified; K74.1 Hepatic sclerosis; N19 Unspecified kidney failure; T56.894A Toxic effect of other metals, undetermined, initial encounter; K50.90 Crohn's disease, unspecified, without complications
CPT/HCPCS: 36415; 80053; 80061; 82306; 82525; 82607; 82728; 82746; 83036; 83540; 83550; 83735; 83970; 84100; 84134; 84255; 84425; 84443; 84590; 84630; 85027; 85610; 85730

== ENCOUNTER → 2022-08-19 | Outpatient (CLI) | payer BC ==
[2022-08-19 15:43] VITALS: BP 120/77; PULSE 65; TEMP 97.9; BMI 28.8
--- NOTE | 2022-08-19 16:28 | P.BASOAP ---
Subjective Progress Note Date: 08/19/22 She has dry brittle hair. Labs reviewed. Start Zinc, Recommend fish, omega, and biotin reviewed. Highest 258 pounds. Objective - Vital Signs Vital signs: Vital Signs Temp 97.9 F 08/19/22 15:39 Pulse 65 08/19/22 15:39 Resp BP 120/77 08/19/22 15:39 Pulse Ox FiO2 Intake & Output 08/18/22 08/19/22 08/19/22 18:59 06:59 18:59 Weight 83.461 kg Assessment/Plan Plan: Date: 08/19/22 Initial Weight: 112.945 kg Initial BMI: 38.9 Current Weight: 83.461 kg Current BMI: 28.8 Type of Surgery: Total Volume in Band: Previous Volume: Volume Removed: Volume Added: Band Size:
== END ==
LOC: BARWHC3 15:21
PROVIDERS: ATTEND Surgery Plastic and Reconstructive Surgery
DX: E66.01 Morbid (severe) obesity due to excess calories (principal); Z68.28 Body mass index [BMI] 28.0-28.9, adult; Z88.0 Allergy status to penicillin; Z88.2 Allergy status to sulfonamides
CPT/HCPCS: 99211